=== PATIENT | male | born 1995 | race Caucasian/White ===

== ENCOUNTER → 2016-05-04 | Outpatient (CLI) | payer OTHER | LOC: RAD 14:07 | PROVIDERS: ATTEND Internal Medicine | DX: Z08 Encounter for follow-up examination after completed treatment for malignant neoplasm (principal); C81.18 Nodular sclerosis Hodgkin lymphoma, lymph nodes of multiple sites | CPT/HCPCS: 78472; A9538; Q9969 ==

== ENCOUNTER → 2016-05-06 | Outpatient (CLI) | payer OTHER | LOC: RAD 12:10 | PROVIDERS: ATTEND Internal Medicine | DX: R59.1 Generalized enlarged lymph nodes (principal); D72.829 Elevated white blood cell count, unspecified | CPT/HCPCS: 78815; A9552 ==

== ENCOUNTER → 2016-05-09 | Outpatient (CLI) | payer OTHER ==
[~2016-05-09] MED LIST: ALBUTEROL SULFATE 0.083% NEB 2.5 MG/3 ML AMPUL NEB ONE
--- NOTE | 2016-05-10 09:40 | PULMONARY FUNCTION TEST ---
DATE OF SERVICE: 05/09/2016 THE VITAL CAPACITY IS NORMAL. THE EXPIRATORY FLOW RATES ARE SLIGHTLY DECREASED. THE FEV1/VC IS 70%, PREDICTED: 85% LUNG VOLUMES BY NITROGEN WASH OUT METHOD SHOW: TLC IS 75% OF PREDICTED FRC IS 59% OF PREDICTED RV IS 33% OF PREDICTED THE DLCO IS 25.9, 79% OF PREDICTED. THE RV/TLC RATIO IS 10% PREDICTED 24% AFTER BRONCHODILATOR, EXPIRATORY FLOW RATES SHOW NO SIGNIFICANT CHANGE. IMPRESSION: THE INSPIRATORY LIMB OF THE F-V LOOP IS FLATTENED. THIS COULD BE DUE TO POOR PATIENT TECHNIQUE OR TO VARIABLE EXTRATHORACIC LARGE AIRWAY OBSTRUCTION. THE EXPIRATORY SPIROGRAM SHOWS GOOD PATIENT TECHNIQUE AND A SLIGHT OBSTRUCTIVE DEFECT. LUNG VOLUMES ARE SLIGHTLY DECREASED. DIFFUSING CAPACITY IS SLIGHTLY DECREASED. CC: BRETT SHARIF MD > ARMAAN
== END ==
LOC: RT 09:12
PROVIDERS: ATTEND Internal Medicine
DX: C81.18 Nodular sclerosis Hodgkin lymphoma, lymph nodes of multiple sites (principal)
CPT/HCPCS: 94060; 94727; 94729

== ENCOUNTER → 2016-05-14 | Outpatient (CLI) | payer OTHER | LOC: RAD 16:51 | PROVIDERS: ATTEND Surgery | DX: Z01.818 Encounter for other preprocedural examination (principal); Z53.8 Procedure and treatment not carried out for other reasons | CPT/HCPCS: 71010 ==

== ENCOUNTER 2016-05-16 16:09 | Day surgery (SDC) | payer OTHER ==
[2016-05-11 11:17] LABS: HEMATOCRIT 39.3 % (37.9-51.0); HEMOGLOBIN 12.1 g/dL (13.5-17.0); MEAN CORPUSCULAR HEMOGLOBIN 25.1 pg (27.0-33.4); MEAN CORPUSCULAR HGB CONC 30.9 g/dL (32.0-36.0); MEAN CORPUSCULAR VOLUME 82 fl (80-97); RED BLOOD COUNT 4.83 10^6/uL (4.35-5.55); RED CELL DISTRIBUTION WIDTH 14.2 % (11.5-14.0); WHITE BLOOD COUNT 27.6 10^3/uL (4.0-10.5)
[2016-05-11 11:53] LABS: ANION GAP 14 (5-19); BLOOD UREA NITROGEN 7 mg/dL (7-20); CALCIUM 9.1 mg/dL (8.4-10.2); CARBON DIOXIDE 30 mmol/L (22-30); CHLORIDE 96 mmol/L (98-107); CREATININE RESULT 0.66 mg/dL (0.52-1.25); GLUCOSE 83 mg/dL (75-110); POTASSIUM 4.3 mmol/L (3.6-5.0); SODIUM 140.3 mmol/L (137-145)
[~2016-05-16 16:09] MED LIST changes: +ACETAMINOPHEN 325 MG TABLET PO PRN; -ALBUTEROL SULFATE 0.083% NEB 2.5 MG/3 ML AMPUL NEB ONE; +CEFAZOLIN 2 GM/D5W RTU 2 GM/50 ML RTUPB IV PRN; +LACTATED RINGERS 1000 ML IV PRN; +LIDOCAINE 0.5% INJ-PF (5 MG/ML) 50 ML SDV SUBCUT PRN; +LIDOCAINE 1%/EPINEPHRINE INJ 20 ML VIAL ONE
[2016-05-16] MEDS ORDERED: MIDAZOLAM 2 MG/2 ML INJ ONE (17:25)
[2016-05-16] MEDS ORDERED: PROPOFOL INJ 200 MG/20 ML VIAL IV ONE (17:25)
[2016-05-16] MEDS ORDERED: DEXMEDETOMIDINE INJ 80 MCG/20 ML VIAL IV ONE (17:26)
[2016-05-16] MEDS ORDERED: LIDOCAINE 1%/EPINEPHRINE INJ 20 ML VIAL ONE (18:27)
[2016-05-16] MEDS ORDERED: MORPHINE SULFATE 10 MG/ML INJ IV PRN ×2 (18:29→18:47)
[2016-05-16] MEDS ORDERED: DIPHENHYDRAMINE HCL 50 MG/ML VIAL IV PRN (18:29)
[2016-05-16] MEDS ORDERED: MEPERIDINE HCL/PF INJ 25 MG/1 ML DISP.SYRIN IV PRN (18:29)
[2016-05-16] MEDS ORDERED: PROMETHAZINE HCL INJ 25 MG/1 ML VIAL IV PRN ×2 (18:29)
[2016-05-16] MEDS ORDERED: OXYCODONE-ACETAMINOPHEN 5-325 MG TABLET PO PRN ×3 (18:29→18:47)
[2016-05-16] MEDS ORDERED: FENTANYL CITRATE INJ/PF 100 MCG/2 ML AMPUL IV PRN ×3 (18:29)
[2016-05-16] MEDS ORDERED: ONDANSETRON HCL INJ/PF 4 MG/2 ML SDV IV PRN (18:47)
--- NOTE | 2016-05-16 18:47 | Operative Report ---
Operative Report DATE OF SURGERY: 05/16/16 PREOPERATIVE DIAGNOSIS: 1. Hodgkin's lymphoma POSTOPERATIVE DIAGNOSIS: Same OPERATION: 1. Placement of left subclavian dual chamber [id number] catheter. 2. Interpretation of intraoperative fluoroscopy SURGEON: OMERO ESPINO 1ST CRAB STEAMER: ANN-MARIE TORO ANESTHESIA: LMAC TISSUE REMOVED OR ALTERED: None COMPLICATIONS: None ESTIMATED BLOOD LOSS: scant INTRAOPERATIVE FINDINGS: See below PROCEDURE: Patient was seen in preoperative holding area where plans were made and confirmed for a placement of a left subclavian dual chamber fused for catheter. Of note patient was concerned about the catheter to fearing with his adenopathy in his neck, and the notion of a catheter going over the clavicle. The patient taken the operating room in the supine position arms tucked, neck and chest exposed and prepped and draped sterile fashion. Surgical plan and surgical timeout were conducted. The patient's concerned about an internal jugular catheter placement, a left subclavian approach was chosen. The skin was anesthetized 1% lidocaine without epinephrine. The puncture was made into the left subclavian vein, and into position. Under fluoroscopic guidance, the wire was found to be in the deep venous system. The initial skin incision was extended medial and laterally by 2 cm each side. A subcutaneous pocket large enough to accommodate the port was developed with a cautery and blunt dissection. A dual-lumen catheter was trimmed appropriately length, attached to the port with the plastic ring. The port was tucked into the pocket and the dilator introducer sheath threaded over the wire and fluoroscopic guidance. Dilator and wire removed, catheter threaded into the left subclavian vein, and the sheath removed area there was excellent blood flow through lumens. Lumens were flushed with heparinized saline. There was no kinking of the catheter, no ectopy. We are satisfied with the port placement. Wound closed with 2-0 Vicryl and Dermabond glue. She tolerated procedure well taken recovery in stable condition. The physician access services assistant, Ms. Toro, provided assistance during this case by: Assisting retracting tissue, instillation of local anesthesia and closure of skin incisions.
--- NOTE | 2016-05-16 18:51 | PDOC DISCHARGE SUMMARY ---
Discharge Summary (SDC) - Discharge Final Diagnosis: Lymphoma Date of Surgery: 05/16/16 Discharge Date: 05/16/16 Condition: Good Treatment or Instructions: [facility] [address] [place] [id number] Discharge Instructions: Neck Surgery 1. General Information: a. Do not drive a car or operate machinery for 1-2 weeks or as long as taking narcotics for pain. b. Do not consume alcohol, tranquilizers, sleeping medications or any non- prescribed medications for 24 hours unless approved by your doctor or as long as taking pain medication. c. Do not make important decisions or sign any important papers for the first 24 hours after surgery. d. When discharged home the same day of surgery have a responsible person with you for the first night. 2. Activity Restrictions: 2 weeks. a. Avoid heavy lifting > 10 lbs, straining, sports, mowing lawn, shoveling snow, vacuum cleaning and bending over a lot. Limit bending to taking a shower and getting dressed. Sleep with head elevated (2 pillows). b. Walking is important to avoid blood clots in the legs and deep breathing can prevent pneumonia. c. It is fine to go up and down steps, ride in a car, and use a stationary bike with low resistance. 3. Treatment: a. The dressing can be removed the day after surgery and to shower then daily is fine, but you should not bathe in the tub or go swimming for 2 weeks. The paper strips (steri-strips) on the skin will fall off and can get wet with a shower, just pat them dry. The sutures dissolve and the strips will be removed in the office on your follow up visit if they have not fallen off by then. May shower 24 hours after surgery; if your incision was glued you may wash your neck and expect glue to fall off in about 2 weeks. b. Do not use oils, powders or lotion on your incision until after the first postoperative visit. Then you may begin to apply daily to the incision a cream of your choice (Vitamin E, cocoa butter, scar creams) to help soften the scar. c. If you are fair skinned it would be gilbert to use sunscreen on the scar for the first 6 months or keep it covered to avoid tanning pigment deposits being trapped in the scar creating a dark line instead of a pink scar. 4. Medications: a. You may take narcotic prescription tablets for pain if needed, one or two every 4 hours (Percocet ). b. Stop the narcotic when able since you cannot take and drive and they may cause constipation. You may switch to plain Tylenol, Advil or Aleve as you transition from the narcotic. Many adults find good pain relief with Ibuprofen 600-800 mg three times a day with meals to work well to avoid narcotic use. High doses of Ibuprofen should only be used for short courses since it can cause indigestion, ulcer bleeding in the stomach and harm kidney function. c. You should resume all normal medications unless a change is specified by your doctors. d. a. If going home same day of surgery you should begin with clear liquids and if do well then advance to a normal diet with foods low in fat and protein. Small portion sizes may be gilbert the first night to lessen risk of vomiting. b. When discharged after a hospital stay you may resume a normal diet. 6. Notify Physician If: a. Worsening of pain or swelling in neck, persistent bleeding at the operative site, nausea and vomiting, fever above 101, unable to urinate and bladder pressure after 8-12 hours, increased redness, drainage, or foul smelling discharge from the incision. b. If you have difficulty breathing or chest pain, call an ambulance and/or go to the Emergency Room. 7. Follow Up Care: a. Schedule a follow up appointment with your doctor for 2 weeks. In the event of any postoperative problems or questions or you may call the office during business hours or the On-Call physician evenings and weekends at [facility]. [facility] 8. I understand the instructions for my postoperative care as described above and a copy has been given to me. Patient/Significant Other Witness Date Prescriptions: Oxycodone HCl/Acetaminophen [Percocet 5-325 mg Tablet] 1 tab PO ASDIR PRN #15 tab PRN Reason: Discharge Diet: As Tolerated Discharge Activity: Activity As Tolerated Home Care Assistance: None Needed Report the Following to Your Physician Immediately: Shortness of Breath, Increase in Pain, Fever over 101 Degrees
[2016-05-16 20:13] VITALS: BP 135/75
== END 2016-05-16 20:34 | disposition home or self-care (01) ==
LOC: OROUT 16:09 → 5 20:06 → OROUT 20:34
PROVIDERS: ATTEND Surgery
PROC: 05H633Z Insertion of Infusion Device into Left Subclavian Vein, Percutaneous Approach (ICD-10-PCS; principal; 2016-05-16 16:00)
DX: C81.91 Hodgkin lymphoma, unspecified, lymph nodes of head, face, and neck (principal); Z87.891 Personal history of nicotine dependence
CPT/HCPCS: 36415; 82962; 85027; 80048; 71010 ×2; 77001; 36561; C1788; C1752; J2250; J3490 ×2; J2704; J0690; J1642; 532

== ENCOUNTER 2016-05-19 17:51 | Emergency (ER) | payer OTHER ==
[2016-05-19] MEDS ORDERED: OXYCODONE-ACETAMINOPHEN 5-325 MG TABLET PO ONE (18:12)
--- NOTE | 2016-05-19 18:18 | ER Document Report ---
ED Medical Screen (RME) - General Chief Complaint: Back Pain Stated Complaint: BACK PAIN Time seen by provider: 18:14 Mode of Arrival: Wheelchair Information source: Patient Notes: 20-year-old male diagnosed with non-Hodgkin's lymphoma has been having chronic back pain which is worse for the past 3 days. He thinks it might be due to generic oxycodone which is not helping. He took one of his mother's 15 mg non- generic oxycodone's which helped the pain for about 6 hours. His doctor who is managing the pain is Dr. Luz. He also states that when he tries to stand up his legs are weak. TRAVEL OUTSIDE OF THE [place] IN LAST 30 DAYS: No - Related Data Allergies/Adverse Reactions: No Known Allergies Allergy (Verified 05/19/16 18:05) Past Medical History - Social History Chew tobacco use (# tins/day): No Frequency of alcohol use: None Drug Abuse: None - Past Medical History Cardiac Medical History: Denies: Hx Coronary Artery Disease, Hx Heart Attack, Hx Hypertension Pulmonary Medical History: Denies: Hx Asthma, Hx Bronchitis, Hx COPD, Hx Pneumonia Neurological Medical History: Denies: Hx Cerebrovascular Accident, Hx Seizures Renal/ Medical History: Denies: Hx Peritoneal Dialysis Musculoskeltal Medical History: Denies Hx Arthritis - Immunizations Immunizations up to date: Yes Hx Diphtheria, Pertussis, Tetanus Vaccination: Yes Physical Exam - Vital signs Vitals: Temp Pulse Resp BP Pulse Ox 97.8 F 89 16 143/72 H 97 05/19/16 18:06 05/19/16 18:06 05/19/16 18:06 05/19/16 18:06 05/19/16 18:06 Course - Vital Signs Vital signs: Temp Pulse Resp BP Pulse Ox 97.8 F 89 16 143/72 H 97 05/19/16 18:06 05/19/16 18:06 05/19/16 18:06 05/19/16 18:06 05/19/16 18:06
[2016-05-19] MEDS ORDERED: HYDROMORPHONE HCL INJ/PF 2 MG/ML AMPULE IV ONE ×2 (19:09→21:16)
--- NOTE | 2016-05-19 19:12 | ER Document Report ---
ED General - General Chief Complaint: Back Pain Stated Complaint: BACK PAIN Mode of Arrival: Wheelchair Notes: Patient is a 20-year-old male with past history of recently diagnosed Hodgkin's lymphoma, has not started chemotherapy who presents with 3 days of progressively worsening bilateral perilumbar spine pain. He does describe it as a severe, constant, throbbing pain. He has been trying Percocet home with minimal improvement of the pain. Nothing worsens the pain. He's had similar symptoms in the past but they have never been to this degree of severity. He denies any weakness, numbness, urinary retention, or difficulty with ambulation. He has not spoken to his oncologist regarding today's ED visit. He is scheduled to start chemotherapy next week. He has not had any fever. TRAVEL OUTSIDE OF THE [place] IN LAST 30 DAYS: No - Related Data Allergies/Adverse Reactions: No Known Allergies Allergy (Verified 05/19/16 18:05) Past Medical History - General Information source: Patient - Social History Smoking Status: Never Smoker Chew tobacco use (# tins/day): No Frequency of alcohol use: None Drug Abuse: None Lives with: Spouse/Significant other Family History: Reviewed & Not Pertinent Patient has suicidal ideation: No Patient has homicidal ideation: No - Past Medical History Cardiac Medical History: Denies: Hx Coronary Artery Disease, Hx Heart Attack, Hx Hypertension Pulmonary Medical History: Denies: Hx Asthma, Hx Bronchitis, Hx COPD, Hx Pneumonia Neurological Medical History: Denies: Hx Cerebrovascular Accident, Hx Seizures Renal/ Medical History: Denies: Hx Peritoneal Dialysis Musculoskeltal Medical History: Denies Hx Arthritis - Immunizations Immunizations up to date: Yes Hx Diphtheria, Pertussis, Tetanus Vaccination: Yes Review of Systems - Review of Systems Notes: Constitutional: Negative for fever. HENT: Negative for sore throat. Eyes: Negative for visual changes. Cardiovascular: Negative for chest pain. Respiratory: Negative for shortness of breath. Gastrointestinal: Negative for abdominal pain, vomiting or diarrhea. Genitourinary: Negative for dysuria. Musculoskeletal: Positive for back pain. Skin: Negative for rash. Neurological: Negative for headaches, weakness or numbness. 10 point ROS negative except as marked above and in HPI. Physical Exam - Vital signs Vitals: Temp Pulse Resp BP Pulse Ox 97.8 F 89 16 143/72 H 97 05/19/16 18:06 05/19/16 18:06 05/19/16 18:06 05/19/16 18:06 05/19/16 18:06 Interpretation: Hypertensive Notes: PHYSICAL EXAMINATION: GENERAL: Well-appearing, well-nourished and in no acute distress. HEAD: Atraumatic, normocephalic. EYES: Pupils equal round and reactive to light, extraocular movements intact, sclera anicteric, conjunctiva are normal. ENT: nares patent, oropharynx clear without exudates. Moist mucous membranes. NECK: Normal range of motion, supple without lymphadenopathy LUNGS: Breath sounds clear to auscultation bilaterally and equal. No wheezes rales or rhonchi. HEART: Regular rate and rhythm without murmurs ABDOMEN: Soft, nontender, normoactive bowel sounds. No guarding, no rebound. No masses appreciated. EXTREMITIES: Normal range of motion, no pitting or edema. No cyanosis. Back: No midline spinal tenderness, step-offs or deformities. Pain on palpation the bilateral perilumbar spine NEUROLOGICAL: 5 out of 5 strength both distally and proximally bilateral lower extremities. 2+ patellar reflexes bilaterally. No clonus. Sensation grossly intact in the bilateral lower extremities. Patient is able to ambulate without difficulty. PSYCH: Normal mood, normal affect. SKIN: Warm, Dry, normal turgor, no rashes or lesions noted. Course - Re-evaluation Re-evalutation: 05/19/16 19:10 Patient with history of stage IV metastatic Hodgkin's lymphoma presents with increasing lumbar back pain and inability to stand up straight secondary to severe pain. Has been unresponsive at home to oral pain medications. Patient does not have any focal neurologic deficits on examination, 2+ reflexes bilaterally in the knees and ankles. However, I'm concerned about the rapidly progressive worsening nature of his pain in addition to his known diagnosis of metastatic lymphoma not currently on chemotherapy for metastases to the lumbar spine. Will therefore proceed with a MRI of the L-spine. Will also provide IV analgesia. 05/19/16 22:41 CT of the spine obtained as MRI was broken and unable to be obtained. There is evidence of retroperitoneal lymphadenopathy which likely explains patient's pain given the absence of any metastatic lesions or L-spine or acute fractures. At this time will discharge with return precautions and follow-up recommendations. Verbal discharge instructions given a the bedside and opportunity for questions given. Medication warnings reviewed. Patient is in agreement with this plan and has verbalized understanding of return precautions and the need for primary care follow-up in the next 24-72 hours. - Vital Signs Vital signs: Temp Pulse Resp BP Pulse Ox 97.8 F 76 16 128/67 H 98 05/19/16 18:06 05/19/16 22:59 05/19/16 22:59 05/19/16 22:59 05/19/16 22:59 - Diagnostic Test Radiology reviewed: Reports reviewed Discharge - Discharge Clinical Impression: Retroperitoneal lymphadenopathy Low back pain Qualifiers: Chronicity: acute Back pain laterality: bilateral Sciatica presence: without sciatica Qualified Code(s): M54.5 - Low back pain Condition: Good Disposition: HOME, SELF-CARE Instructions: Oral Narcotic Medication ([facility]) Additional Instructions: Your pain is likely due to swollen lymph nodes in your back due to your lymphoma. Continue to take the naproxen as prescribed. Take the oral dilaudid 2- 4mg every 6 hours as needed for severe pain. STOP THE PERCOCET. Return if you develop weakness, numbness, confusion, difficulty urination, or any other symptoms that are concerning to you. Prescriptions: Hydromorphone HCl [Dilaudid 2 mg Tablet] 2 - 4 mg PO Q6HP PRN #30 tablet PRN Reason:
[2016-05-19 23:21] VITALS: BP 128/67
== END 2016-05-19 22:59 | disposition home or self-care (01) ==
LOC: ER 17:51
DX: R59.1 Generalized enlarged lymph nodes (principal); M54.5 Low back pain; C81.90 Hodgkin lymphoma, unspecified, unspecified site
CPT/HCPCS: 99283; 72132; J1170